=== PATIENT | female | born 1940 | race Caucasian/White ===

== ENCOUNTER → 2020-05-04 | Outpatient (CLI) | payer MEDICARE, BC ==
--- NOTE | 2020-05-04 21:16 | CT ---
EXAMINATION TYPE: CT shoulder LT wo con DATE OF EXAM: 05/04/2020 COMPARISON: None HISTORY: Lt shoulder pain CT DLP: 366 mGycm Automated exposure control for dose reduction was used. TECHNIQUE: Axial images 3 mm thick sections. Reconstructed images in the coronal and sagittal planes. Three-D reconstructed images are performed by the technologist and presented rotating on the compute r FINDINGS: There is an impacted fracture of the humeral neck. The humeral head articulates with the glenoid. The acromiohumeral space appears preserved. No additional fractures are evident. Scapula appears intact. Adjacent ribs appear intact. Clavicle is intact. Acromioclavicular junction is normal. IMPRESSION: IMPACTED FRACTURE NECK OF THE LEFT HUMERUS.
== END | disposition home or self-care (01) ==
LOC: RADCTMAIN 10:40
PROVIDERS: ATTEND Orthopaedic Surgery
DX: S42.202A Unspecified fracture of upper end of left humerus, initial encounter for closed fracture (principal)

== ENCOUNTER → 2023-05-06 | Outpatient (CLI) | payer MEDICARE, BC ==
--- NOTE | 2023-05-06 22:55 | XR ---
EXAMINATION TYPE: XR ankle complete RT DATE OF EXAM: 05/06/2023 COMPARISON: None HISTORY: Swelling pain TECHNIQUE: 3 view right ankle FINDINGS: No acute fracture or dislocation is evident. The ankle mortise is intact. The soft tissues appear normal. Plantar and Achilles tendon calcaneal heel spurs are present. IMPRESSION: 1. No acute osseous abnormality right ankle.
== END | disposition home or self-care (01) ==
LOC: RADXRYALE 13:38
PROVIDERS: ATTEND Nurse Practitioner Family
DX: M25.571 Pain in right ankle and joints of right foot (principal); M79.89 Other specified soft tissue disorders

== ENCOUNTER → 2024-12-31 | Outpatient (CLI) | payer MEDICARE, BC ==
--- NOTE | 2024-12-31 12:24 | XR ---
EXAMINATION TYPE: XR shoulder complete RT DATE OF EXAM: 12/31/2024 12:06 PM COMPARISON: None CLINICAL INDICATION: Female, 84 years old with history of [id number] PAIN AND SWELLING RT SHLD; YC H, pain TECHNIQUE: 3 views Mild degenerative spurring glenohumeral joint. Subacromial space is preserved. AC joint appears congr uent and intact. Marked osteopenia. No acute fracture, subluxation, dislocation seen. IMPRESSION: Limited by osteopenia. 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 No acute osseous abnormali ty seen. [facility], Workstation: [email or web address], 12/31/2024 12:22 PM
== END | disposition home or self-care (01) ==
LOC: RADXRYALE 11:45
PROVIDERS: ATTEND Nurse Practitioner Family
DX: M19.011 Primary osteoarthritis, right shoulder (principal); M85.811 Other specified disorders of bone density and structure, right shoulder; M25.411 Effusion, right shoulder